=== PATIENT | female | born 1940 | race Caucasian/White ===

== ENCOUNTER 2016-12-31 16:39 | Emergency (ER) | payer MEDICARE, OTHER ==
--- NOTE | ~2016-12-31 | EKG ---
PATIENT: GENARO ROJAS UNIT #: [id number] Ventricular Rate: 58 BPM Atrial Rate: 58 BPM P-R Interval: 148 ms QRS Duration: 94 ms Q-T Interval: 418 ms QTC Calculation(Bezet): 410 ms P [place]: 36 degrees Calculated R [place]: 74 degrees Calculated T [place]: 38 degrees Diagnosis Line: Sinus bradycardia Diagnosis Line: Septal infarct , age undetermined Diagnosis Line: Abnormal ECG Diagnosis Line: Diagnosis Line: Confirmed by LUCILA TSANG MD ([id number]) on Diagnosis Line: 01/01/2017 3:45:51 PM INTERPRETING MD: TRINH RAIN
[2016-12-31 18:12] LABS: BASOPHIL# 0.1 X10e3 (0-0.3); BASOPHIL% 1.4 % (0-2.5); EOSINOPHIL# 0.3 X10e3 (0-0.7); EOSINOPHIL% 4.7 % (0.0-7.0); HEMOGLOBIN 12.7 gm/dL (12.0-16.0); LYMPHOCYTE# 1.5 X10e3 (1.0-3.5); LYMPHOCYTE% 25.4 % (17.0-45.0); MEAN CELL VOLUME 88.3 FL (83-96); MEAN CORPUSCULAR HEMOGLOBIN 28.7 PG (28-34); MEAN CORPUSCULAR HGB CONC 32.5 g/dL (30-36); MEAN PLATELET VOLUME 9.5 FL (6.5-11.5); MONOCYTE# 0.7 X10e3 (0-1.0); MONOCYTE% 11.8 % (3.0-12.0); NEUTROPHIL# 3.3 X10e3 (1.5-7.1); NEUTROPHIL% 56.7 % (40-75); PLATELET COUNT 207 X10e3 (140-420); RED BLOOD COUNT 4.41 X10e (3.90-5.30); RED CELL DISTRIBUTION WIDTH 14.5 % (11.0-15.5); WHITE BLOOD COUNT 5.9 X10e3 (4.0-10.5)
[2016-12-31 18:16] LABS: DIFF IND NO
[2016-12-31 18:26] LABS: POC - TROPONIN <0.05 ng/mL (<=0.05)
[2016-12-31 18:43] LABS: BUN/CREATININE RATIO 18.88; CALCIUM SERUM 9.7 mg/dL (8.4-10.2); CREATININE SERUM 0.9 mg/dL (0.6-1.4); GLOM FILT RATE Estimated 61.3 mL/min (>60); POTASSIUM 3.9 mmol/L (3.5-5.1)
== END 2016-12-31 19:00 | disposition home or self-care (01) ==
LOC: CED 16:39
PROVIDERS: Emergency Medicine
DX: I10 Essential (primary) hypertension (principal); H11.31 Conjunctival hemorrhage, right eye; J44.9 Chronic obstructive pulmonary disease, unspecified; Z88.0 Allergy status to penicillin
CPT/HCPCS: 36415; 80048; 82553; 84484; 85025; 93005; 99283

== ENCOUNTER 2017-03-28 14:25 | Emergency (ER) | payer MEDICARE, OTHER ==
[~2017-03-28] VITALS: Ht 165.1 cm; Wt 77.1 kg
--- NOTE | ~2017-03-28 | CR2 ---
[facility] A Service of [facility] RADIOLOGY TEXT RESULTS PATIENT: GENARO ROJAS LOCATION: [facility] : 36 UNIT #: [id number] AGE: [address]: Jose Winn MD SEX: F ORDER DR: [id number] [facility] [address] [place], [place] [address] [id number] MR#: [id number] Acc #: [id number] NAME: GENARO ROJAS : 1940 SEX: F STUDY DATE/TIME: 03/28/2017 16:10 UNIT: [facility] ROOM: STUDY DESCRIPTION: CR Abdomen Acute Series Attending Physician: Neal Winn M.D. Referring Physician: No Primary Care Physician Ordering Physician: Ed Jose Mackenzie M.D. Primary Care Physician: No Primary Care Physician MEDICAL IMAGING REPORT This report is preliminary unless electronic signature is present EXAM Acute abdomen series HISTORY Shortness of air and vomiting since yesterday. FINDINGS Flat and upright views of the abdomen and upright view of the chest demonstrate moderate right lumbar curve with [id number] multilevel degenerative changes in the lumbar spine, primarily in the mid and lower lumbar spine. Additional moderate hypertrophic changes lower thoracic spine. The bowel gas pattern is normal. No bowel dilatation or displacement. No free air. Upright view of the chest demonstrates the cardiac size and pulmonary vascularity are normal. No infiltrates or effusions. Mild elevation of the right hemidiaphragm. IMPRESSION 1. No acute findings. Normal bowel gas pattern. 2. 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 3. No active disease in the lungs. Dictated by... Jairon Jones M.D. THIS IS AN ELECTRONICALLY VERIFIED REPORT Jairon Jones M.D. at 03/28/2017 11:47 PM DFL/psc TD: 03/28/2017 22:25 [facility] A Service of [facility] RADIOLOGY TEXT RESULTS PATIENT: EGNARO ROJAS LOCATION: [facility] : 36 UNIT #: [id number] AGE: [address]: Jose Winn MD SEX: F ORDER DR: JOB #: [id number] MEDICAL IMAGING REPORT Page 1 of 1 COPY
[2017-03-28] MEDS ORDERED: RELAFEN500 MG PO (15:54)
[2017-03-28] MEDS ORDERED: DIOVAN HCT 3201 EACH PO (15:55)
[2017-03-28] MEDS ORDERED: TOPROL XL50 MG PO (15:55)
[2017-03-28 16:04] LABS: BASOPHIL% 0.1 % (0-2.5); EOSINOPHIL% 0.1 % (0.0-7.0); HEMATOCRIT 43.3 % (35.0-45.0); HEMOGLOBIN 14.3 gm/dL (12.0-16.0); LYMPHOCYTE# 0.4 X10e3 (1.0-3.5); LYMPHOCYTE% 4.6 % (17.0-45.0); MEAN CELL VOLUME 87.7 FL (83-96); MEAN CORPUSCULAR HEMOGLOBIN 28.9 PG (28-34); MEAN CORPUSCULAR HGB CONC 32.9 g/dL (30-36); MEAN PLATELET VOLUME 9.9 FL (6.5-11.5); MONOCYTE# 0.5 X10e3 (0-1.0); NEUTROPHIL# 8.3 X10e3 (1.5-7.1); NEUTROPHIL% 90.2 % (40-75); PLATELET COUNT 235 X10e3 (140-420); RED BLOOD COUNT 4.94 X10e (3.90-5.30); RED CELL DISTRIBUTION WIDTH 14.6 % (11.0-15.5); WHITE BLOOD COUNT 9.2 X10e3 (4.0-10.5)
[2017-03-28 16:16] LABS: DIFF IND NO
[2017-03-28 16:21] LABS: URINE SOURCE CLEAN CATCH
[2017-03-28 16:30] LABS: POC - CKMB <1.0 ng/mL (0.0-7.9); POC - TROPONIN <0.05 ng/mL (<=0.05)
[2017-03-28 16:35] LABS: URINE APPEARANCE CLOUDY; URINE BLOOD NEG (NEG); URINE COLOR DK YELLOW; URINE GLUCOSE NEG (NEG); URINE KETONE 1+ (NEG); URINE LEUKOCYTE ESTERASE TRACE (NEG); URINE NITRATE NEG (NEG); URINE PROTEIN 2+ (NEG); URINE SPECIFIC GRAVITY 1.031 (1.003-1.035)
[2017-03-28 16:36] LABS: CULTURE INDICATED? YES; URINE BACTERIA AUWI NEG (NEGATIVE); URINE SQUAMOUS EPITHELIAL CELL MOD /[HPF]
[2017-03-28 16:45] LABS: URINE BILIRUBIN NEG (NEG)
[2017-03-28 16:46] LABS: URINE MUCUS PRESENT
[2017-03-28 16:49] LABS: ALBUMIN SERUM 4.2 g/dL (3.5-5.0); BILIRUBIN, DIRECT 0.1 mg/dL (0.0-0.2); BILIRUBIN,INDIRECT 0.6 mg/dL (0.0-0.9); BILIRUBIN,TOTAL 0.7 mg/dL (0.2-2.0); BUN/CREATININE RATIO 22.85; CALCIUM SERUM 9.3 mg/dL (8.4-10.2); CREATININE SERUM 1.4 mg/dL (0.6-1.4); GLOM FILT RATE Estimated 35.6 mL/min (>60); POTASSIUM 3.2 mmol/L (3.5-5.1); PROTEIN TOTAL SERUM 7.4 g/dL (6.0-8.3)
== END 2017-03-28 17:50 | disposition home or self-care (01) ==
LOC: CED 14:25
PROVIDERS: Emergency Medicine
DX: E86.0 Dehydration (principal); I10 Essential (primary) hypertension; J44.9 Chronic obstructive pulmonary disease, unspecified; Z87.891 Personal history of nicotine dependence; Z88.0 Allergy status to penicillin; Z79.899 Other long term (current) drug therapy
CPT/HCPCS: 36415; 74022; 80048; 80076; 81003; 82553; 83690; 84484; 85025; 87086; 96361; 96374; 96375; 99284; J2405